=== PATIENT | female | born 1940 | race Caucasian/White ===

== ENCOUNTER 2019-06-14 12:41 | Emergency (ER) | payer OTHER, MEDICARE ==
[~2019-06-14] VITALS: Ht 157.5 cm; Wt 68.0 kg
[~2019-06-14 12:41] MED LIST: CARISOPRODOL 3350 MG PO; CIPRO250 M1 PO; FISH OIL 1,0001 EAC5 PO; FLEXERIL PO; FOSAMAX 70 MG T70 MG PO; GALZIN50 MG PO; HAIR, SKIN & N1 EAC1 PO; LODINE400 MG PO; MAGNESIUM250 M1 PO; NIASPAN ER 101000 M1 PO; OSTEO BI-FLEX1 EAC1 PO; OXYBUTYNIN 5 MG5 M1 PO; OXYCODON-ACETA1 EAC1 PO; OXYCODONE-ACET1 EAC2 PO; PREDNISONE 5 MG5 M1 PO; PRILOSEC 20 MG20 MG PO; VALIUM5 MG PO; VASOTEC20 MG PO; VITAMIN E400 UNIT PO
[2019-06-14 13:21] LABS: HEMATOCRIT 31.4 % (37.0-47.0); HEMOGLOBIN 9.6 gm/dL (12.0-15.0); MCH 22.8 pg (26.0-34.0); MCHC 30.5 g/dL (28.0-37.0); PLATELET COUNT 252 thou/uL (150-400); RBC 4.19 mil/uL (4.20-5.00); RDW 17.8 % (10.5-14.5); WBC 5.1 thou/uL (4.0-11.0)
[2019-06-14 13:29] LABS: ANION GAP 6 mmol/L (7-16); BUN 12 mg/dL (7-18); CALCIUM 8.8 mg/dL (8.5-10.1); CHLORIDE 106 mmol/L (98-107); CO2 29 mmol/L (21-32); CREATININE 0.8 mg/dL (0.6-1.0); GLUCOSE 102 mg/dL (74-106); POTASSIUM 3.9 mmol/L (3.5-5.1); SODIUM 141 mmol/L (136-145)
[2019-06-14 13:39] LABS: ALBUMIN 3.6 g/dL (3.4-5.0); SGOT 23 U/L (15-37); SGPT 24 U/L (30-65); TOTAL BILIRUBIN 0.3 mg/dL (<0.1-1.0); TOTAL PROTEIN 6.9 g/dL (6.4-8.2); TROPONIN-I <0.06 ng/mL (<0.06)
--- NOTE | 2019-06-14 13:45 | EKG ---
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[employer] : 1940 Requested By: Cintia Dash Order Number: [id number] : Oliver Price Measurements Intervals [place] Rate: 91 P: 73 [place]: 141 QRS: -3 QRSD: 84 T: 42 QT: 344 QTc: 424 Interpretive Statements Sinus rhythm Ventricular premature complex Probable left atrial enlargement Abnormal R-wave progression, early transition No previous ECG available for comparison Electronically Signed On 06-14-2019 13:44:14 [employer]IEF by Oliver Price [email or web address] <ELECTRONICALLY SIGNED> By: Oliver Price MD 06/14/19 1344 [id number] 1323 MD ARA Nayak
[2019-06-14 13:46] VITALS: BP 139/50
[2019-06-14 14:02] LABS: ABSOLUTE NEUTROPHILS 4.1 thou/uL (1.4-8.2); ANISOCYTOSIS 1+; HYPOCHROMASIA 2+
[2019-06-14 14:03] LABS: MICROCYTES FEW
[2019-06-14] MEDS ORDERED: TESSALON PERLE100 MG PO (14:18)
[2019-06-14] MEDS ORDERED: MUCINEX600 MG PO (14:18)
[2019-06-14] MEDS ORDERED: IBUPROFEN 600600 M1 PO (14:18)
== END 2019-06-14 15:23 | disposition home or self-care (01) ==
LOC: ER 12:41
PROVIDERS: Nurse Practitioner Family
DX: J11.1 Influenza due to unidentified influenza virus with other respiratory manifestations (principal); R19.7 Diarrhea, unspecified; I10 Essential (primary) hypertension; E78.00 Pure hypercholesterolemia, unspecified; Z90.710 Acquired absence of both cervix and uterus; Z90.49 Acquired absence of other specified parts of digestive tract; Z88.6 Allergy status to analgesic agent

== ENCOUNTER → 2020-02-09 | Outpatient (CLI) | payer OTHER, MEDICARE ==
[~2020-02-09] VITALS: Ht 157.5 cm; Wt 70.3 kg
[~2020-02-09] MED LIST changes: +BIOTIN1000 MCG PO; +CALCIUM500 MG PO; +IBUPROFEN 600600 M1 PO; +LIPITOR40 MG PO; +MUCINEX600 MG PO; +NEURONTIN 300M300 M2 PO; +POTASSIUM99 M1 PO; +PROTONIX40 M4 PO; +TESSALON PERLE100 MG PO; +TRAMADOL 50 MG50 MG PO; +VITAMIN D3-ALO1 EACH PO
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
[2020-02-09 09:47] VITALS: BP 167/77
--- NOTE | 2020-02-09 10:34 | NUR ---
Pain Clinic Assessment: 1. History of Osteoarthritis: FINGERS HANDS SHOULDERS WRISTS History of Rheumatoid Arthritis: Not Applicable 2. Height: 5 ft. 2 in. 157.5 cm. Weight: 155.0 lb. oz. 70.308 kg. Patient's BMI: 28.3 3. Vital Signs: BP: 167/77 Pulse: 74 Resp: 16 Temp: 02 Sat: 99 ECG Mon: 4. Pain Intensity: 8-9 5. Fall Risk: Dizziness: N Needs help standing or walking: N Fallen in the last 3 months: N Fall risk comments: 6. Patient on Blood Thinner: None 7. History of Hypertension: Y 8. Opioid Therapy greater than 6 weeks: Y Opiate Contract Signed: 9. Risk Assessment Tool Provided: low-0 10. Functional Assessment Tool: 53/70 11. Recreational Drug Use: Never Drug Type: Tobacco Use: Former Smoker Tobacco Type: Cigarettes Amount or Packs/day: How Many Years: Alcohol Use: Yes Frequency: Special Occasions Quant: 1
== END ==
LOC: PAIN 01-20 14:03
PROVIDERS: ATTEND Anesthesiology Pain Medicine
DX: G89.29 Other chronic pain (principal); I10 Essential (primary) hypertension; Z87.19 Personal history of other diseases of the digestive system; Z88.8 Allergy status to other drugs, medicaments and biological substances; Z79.899 Other long term (current) drug therapy

== ENCOUNTER → 2020-03-11 | Outpatient (CLI) | payer OTHER, MEDICARE ==
[~2020-03-11] VITALS: Ht 157.5 cm; Wt 71.2 kg
[~2020-03-11] MED LIST changes: +BUTALB-APAP-CA1 EACH PO; +CYMBALTA20 MG PO; +DULOXETINE HCL30 MG PO
[2020-03-11 14:39] VITALS: BP 154/80
== END | disposition home or self-care (01) ==
LOC: PAIN 06:57
PROVIDERS: ATTEND Anesthesiology Pain Medicine
DX: M19.011 Primary osteoarthritis, right shoulder (principal); M19.012 Primary osteoarthritis, left shoulder; I10 Essential (primary) hypertension; M19.90 Unspecified osteoarthritis, unspecified site; Z98.890 Other specified postprocedural states; Z79.899 Other long term (current) drug therapy; Z87.891 Personal history of nicotine dependence; Z88.8 Allergy status to other drugs, medicaments and biological substances

== ENCOUNTER → 2020-06-07 | Outpatient (CLI) | payer OTHER, MEDICARE ==
[~2020-06-07] VITALS: Ht 157.5 cm; Wt 73.2 kg
[~2020-06-07] MED LIST changes: +MELOXICAM7.5 MG PO
[2020-06-07 14:16] VITALS: BP 134/63
--- NOTE | 2020-06-07 14:36 | NUR ---
Pain Clinic Assessment: 1. History of Osteoarthritis: FINGERS HANDS SHOULDERS WRISTS KNEES History of Rheumatoid Arthritis: Not Applicable 2. Height: 5 ft. 2 in. 157.5 cm. Weight: 161.4 lb. oz. 73.211 kg. Patient's BMI: 29.5 3. Vital Signs: BP: 134/63 Pulse: 90 Resp: 16 Temp: 02 Sat: 97 ECG Mon: 4. Pain Intensity: 8 TO 9 5. Fall Risk: Dizziness: N Needs help standing or walking: N Fallen in the last 3 months: Y Fall risk comments: 6. Patient on Blood Thinner: None 7. History of Hypertension: Y 8. Opioid Therapy greater than 6 weeks: N Opiate Contract Signed: 9. Risk Assessment Tool Provided: low-0 10. Functional Assessment Tool: 53/70 11. Recreational Drug Use: Never Drug Type: Tobacco Use: Former Smoker Tobacco Type: Amount or Packs/day: How Many Years: Alcohol Use: Yes Frequency: Special Occasions Quant: 1
== END | disposition home or self-care (01) ==
LOC: PAIN 07:10
PROVIDERS: ATTEND Anesthesiology Pain Medicine
DX: M17.0 Bilateral primary osteoarthritis of knee (principal); M25.561 Pain in right knee; M25.562 Pain in left knee; G89.29 Other chronic pain; M19.011 Primary osteoarthritis, right shoulder; M19.012 Primary osteoarthritis, left shoulder; I10 Essential (primary) hypertension; M19.90 Unspecified osteoarthritis, unspecified site; Z98.890 Other specified postprocedural states; Z79.899 Other long term (current) drug therapy; Z87.891 Personal history of nicotine dependence; Z88.8 Allergy status to other drugs, medicaments and biological substances

== ENCOUNTER → 2020-08-23 | Outpatient (CLI) | payer OTHER, MEDICARE ==
[~2020-08-23] VITALS: Ht 157.5 cm; Wt 71.7 kg
[~2020-08-23] MED LIST changes: +GLUCOSAMINE H1500 MG PO; +LODINE400 M1 PO; +MAGNESIUM PO; +NORVASC5 MG PO; +OXYBUTYNIN 5 MG5 M2 PO; +POTASSIUM PO; +PROTONIX40 M2 PO; +SUPER THERAVIT1 EACH PO; +VITAMIN D325 MC3 PO; +ZINC50 M2 PO
[2020-08-23 15:21] VITALS: BP 119/72
--- NOTE | 2020-08-23 15:39 | NUR ---
Pain Clinic Assessment: 1. History of Osteoarthritis: FINGERS HANDS SHOULDERS WRISTS KNEES History of Rheumatoid Arthritis: Not Applicable 2. Height: 5 ft. 2 in. 157.5 cm. Weight: 158.0 lb. oz. 71.668 kg. Patient's BMI: 28.9 3. Vital Signs: BP: 119/72 Pulse: 92 Resp: 16 Temp: 02 Sat: 96 ECG Mon: 4. Pain Intensity: 10 W/ACTIVITY 5. Fall Risk: Dizziness: N Needs help standing or walking: N Fallen in the last 3 months: N Fall risk comments: 6. Patient on Blood Thinner: None 7. History of Hypertension: Y 8. Opioid Therapy greater than 6 weeks: N Opiate Contract Signed: 9. Risk Assessment Tool Provided: low-0 10. Functional Assessment Tool: 53/70 11. Recreational Drug Use: Never Drug Type: Tobacco Use: Former Smoker Tobacco Type: Amount or Packs/day: How Many Years: Alcohol Use: Yes Frequency: Quant:
== END | disposition home or self-care (01) ==
LOC: PAIN 10:46
PROVIDERS: ATTEND Anesthesiology Pain Medicine
DX: M25.511 Pain in right shoulder (principal); M25.512 Pain in left shoulder; M12.812 Other specific arthropathies, not elsewhere classified, left shoulder; M12.811 Other specific arthropathies, not elsewhere classified, right shoulder; M77.8 Other enthesopathies, not elsewhere classified; M75.52 Bursitis of left shoulder; M75.51 Bursitis of right shoulder; I10 Essential (primary) hypertension; Z98.890 Other specified postprocedural states; Z79.899 Other long term (current) drug therapy; Z87.891 Personal history of nicotine dependence; Z88.8 Allergy status to other drugs, medicaments and biological substances

== ENCOUNTER → 2020-09-16 | Outpatient (CLI) | payer OTHER, MEDICARE ==
[~2020-09-16] VITALS: Ht 157.5 cm; Wt 66.1 kg
[~2020-09-16] MED LIST changes: +METHOCARBAMOL500 M2 PO
[2020-09-16 09:44] VITALS: BP 126/70
--- NOTE | 2020-09-16 09:56 | NUR ---
Pain Clinic Assessment: 1. History of Osteoarthritis: FINGERS HANDS SHOULDERS WRISTS KNEES History of Rheumatoid Arthritis: Not Applicable 2. Height: 5 ft. 2 in. 157.5 cm. Weight: 145.8 lb. oz. 66.134 kg. Patient's BMI: 26.7 3. Vital Signs: BP: 126/70 Pulse: 94 Resp: 18 Temp: 02 Sat: 95 ECG Mon: 4. Pain Intensity: 10 5. Fall Risk: Dizziness: N Needs help standing or walking: N Fallen in the last 3 months: N Fall risk comments: 6. Patient on Blood Thinner: None 7. History of Hypertension: Y 8. Opioid Therapy greater than 6 weeks: N Opiate Contract Signed: 9. Risk Assessment Tool Provided: low-0 10. Functional Assessment Tool: 53/70 11. Recreational Drug Use: Never Drug Type: Tobacco Use: Former Smoker Tobacco Type: Amount or Packs/day: How Many Years: Alcohol Use: Yes Frequency: Special Occasions Quant: 1
== END | disposition home or self-care (01) ==
LOC: PAIN 07:13
PROVIDERS: ATTEND Anesthesiology Pain Medicine
DX: M48.061 Spinal stenosis, lumbar region without neurogenic claudication (principal); M54.16 Radiculopathy, lumbar region; G89.29 Other chronic pain; I10 Essential (primary) hypertension; M19.90 Unspecified osteoarthritis, unspecified site; Z98.890 Other specified postprocedural states; Z79.899 Other long term (current) drug therapy; Z87.891 Personal history of nicotine dependence; Z88.8 Allergy status to other drugs, medicaments and biological substances

== ENCOUNTER → 2020-10-21 | Outpatient (CLI) | payer OTHER, MEDICARE ==
[~2020-10-21] VITALS: Ht 157.5 cm; Wt 71.0 kg
[~2020-10-21] MED LIST changes: +CYMBALTA30 MG PO; +HYDROCODON-ACE1 EAC7 PO
[2020-10-21 12:59] VITALS: BP 129/72
--- NOTE | 2020-10-21 13:10 | NUR ---
Pain Clinic Assessment: 1. History of Osteoarthritis: FINGERS HANDS SHOULDERS WRISTS KNEES History of Rheumatoid Arthritis: Not Applicable 2. Height: 5 ft. 2 in. 157.5 cm. Weight: 156.6 lb. oz. 71.033 kg. Patient's BMI: 28.6 3. Vital Signs: BP: 129/72 Pulse: 87 Resp: 16 Temp: 02 Sat: 97 ECG Mon: 4. Pain Intensity: 4 back 10 shoulder 5. Fall Risk: Dizziness: N Needs help standing or walking: N Fallen in the last 3 months: N Fall risk comments: 6. Patient on Blood Thinner: None 7. History of Hypertension: Y 8. Opioid Therapy greater than 6 weeks: N Opiate Contract Signed: 9. Risk Assessment Tool Provided: low-0 10. Functional Assessment Tool: 53/70 11. Recreational Drug Use: Never Drug Type: Tobacco Use: Former Smoker Tobacco Type: Amount or Packs/day: How Many Years: Alcohol Use: Yes Frequency: Special Occasions Quant: 1-2
== END ==
LOC: PAIN 11:00
PROVIDERS: ATTEND Clinical Nurse Specialist Adult Health
DX: M54.16 Radiculopathy, lumbar region (principal); M48.061 Spinal stenosis, lumbar region without neurogenic claudication; M41.86 Other forms of scoliosis, lumbar region; M19.90 Unspecified osteoarthritis, unspecified site; G89.4 Chronic pain syndrome; I10 Essential (primary) hypertension; Z79.891 Long term (current) use of opiate analgesic; Z79.899 Other long term (current) drug therapy; Z87.891 Personal history of nicotine dependence; Z72.89 Other problems related to lifestyle

== ENCOUNTER → 2020-12-30 | Outpatient (CLI) | payer OTHER, MEDICARE ==
[~2020-12-30] VITALS: Ht 157.5 cm; Wt 72.0 kg
[~2020-12-30] MED LIST changes: +CYMBALTA60 MG PO; +TIZANIDINE HCL 22 M1 PO
[2020-12-30 13:32] VITALS: BP 160/79
--- NOTE | 2020-12-30 13:40 | NUR ---
Pain Clinic Assessment: 1. History of Osteoarthritis: FINGERS HANDS SHOULDERS WRISTS KNEES History of Rheumatoid Arthritis: Not Applicable 2. Height: 5 ft. 2 in. 157.5 cm. Weight: 158.8 lb. oz. 72.031 kg. Patient's BMI: 29.0 3. Vital Signs: BP: 160/79 Pulse: 80 Resp: 16 Temp: 02 Sat: 98 ECG Mon: 4. Pain Intensity: 7 5. Fall Risk: Dizziness: N Needs help standing or walking: N Fallen in the last 3 months: N Fall risk comments: 6. Patient on Blood Thinner: None 7. History of Hypertension: Y 8. Opioid Therapy greater than 6 weeks: N Opiate Contract Signed: 9. Risk Assessment Tool Provided: low-0 10. Functional Assessment Tool: 53/70 11. Recreational Drug Use: Never Drug Type: Tobacco Use: Former Smoker Tobacco Type: Amount or Packs/day: How Many Years: Alcohol Use: Yes Frequency: Quant:
== END ==
LOC: PAIN 12:05
PROVIDERS: ATTEND Clinical Nurse Specialist Adult Health
DX: M41.86 Other forms of scoliosis, lumbar region (principal); M54.16 Radiculopathy, lumbar region; M48.061 Spinal stenosis, lumbar region without neurogenic claudication; M19.011 Primary osteoarthritis, right shoulder; M19.012 Primary osteoarthritis, left shoulder; M19.92 Post-traumatic osteoarthritis, unspecified site; G89.29 Other chronic pain

== ENCOUNTER → 2021-02-07 | Outpatient (CLI) | payer OTHER, MEDICARE ==
[~2021-02-07] VITALS: Ht 157.5 cm; Wt 71.8 kg
[2021-02-07 10:44] VITALS: BP 156/78
--- NOTE | 2021-02-07 10:59 | NUR ---
Pain Clinic Assessment: 1. History of Osteoarthritis: FINGERS HANDS SHOULDERS WRISTS KNEES History of Rheumatoid Arthritis: Not Applicable 2. Height: 5 ft. 2 in. 157.5 cm. Weight: 158.2 lb. oz. 71.759 kg. Patient's BMI: 28.9 3. Vital Signs: BP: 156/78 Pulse: 83 Resp: 16 Temp: 02 Sat: 97 ECG Mon: 4. Pain Intensity: 8 5. Fall Risk: Dizziness: N Needs help standing or walking: Y Fallen in the last 3 months: N Fall risk comments: 6. Patient on Blood Thinner: None 7. History of Hypertension: Y 8. Opioid Therapy greater than 6 weeks: N Opiate Contract Signed: 9. Risk Assessment Tool Provided: low-0 10. Functional Assessment Tool: 53/70 11. Recreational Drug Use: Never Drug Type: Tobacco Use: Former Smoker Tobacco Type: Amount or Packs/day: How Many Years: Alcohol Use: Yes Frequency: Quant:
== END | disposition home or self-care (01) ==
LOC: PAIN 07:00
PROVIDERS: ATTEND Anesthesiology Pain Medicine
DX: M17.0 Bilateral primary osteoarthritis of knee (principal); M19.011 Primary osteoarthritis, right shoulder; M19.012 Primary osteoarthritis, left shoulder; I10 Essential (primary) hypertension; M19.90 Unspecified osteoarthritis, unspecified site; Z98.890 Other specified postprocedural states; Z79.899 Other long term (current) drug therapy; Z88.8 Allergy status to other drugs, medicaments and biological substances; Z87.891 Personal history of nicotine dependence

== ENCOUNTER → 2021-05-26 | Outpatient (CLI) | payer OTHER, MEDICARE ==
[~2021-05-26] VITALS: Ht 157.5 cm; Wt 70.3 kg
[~2021-05-26] MED LIST changes: +VOLTAREN ARTHRI20 GM
[2021-05-26 14:39] VITALS: BP 122/69
--- NOTE | 2021-05-26 14:53 | NUR ---
Pain Clinic Assessment: 1. History of Osteoarthritis: FINGERS HANDS SHOULDERS WRISTS KNEES History of Rheumatoid Arthritis: Not Applicable 2. Height: 5 ft. 2 in. 157.5 cm. Weight: 155.0 lb. oz. 70.308 kg. Patient's BMI: 28.3 3. Vital Signs: BP: 122/69 Pulse: 89 Resp: 16 Temp: 02 Sat: 97 ECG Mon: 4. Pain Intensity: 8 5. Fall Risk: Dizziness: N Needs help standing or walking: Y Fallen in the last 3 months: N Fall risk comments: 6. Patient on Blood Thinner: None 7. History of Hypertension: Y 8. Opioid Therapy greater than 6 weeks: N Opiate Contract Signed: 9. Risk Assessment Tool Provided: low-0 10. Functional Assessment Tool: 11. Recreational Drug Use: Never Drug Type: Tobacco Use: Former Smoker Tobacco Type: Amount or Packs/day: How Many Years: Alcohol Use: No Frequency: Quant:
== END | disposition home or self-care (01) ==
LOC: PAIN 09:33
PROVIDERS: ATTEND Anesthesiology Pain Medicine
DX: M25.561 Pain in right knee (principal); M25.562 Pain in left knee; M17.0 Bilateral primary osteoarthritis of knee; M54.16 Radiculopathy, lumbar region; G89.29 Other chronic pain; I10 Essential (primary) hypertension; M19.90 Unspecified osteoarthritis, unspecified site; Z98.890 Other specified postprocedural states; Z79.899 Other long term (current) drug therapy; Z87.891 Personal history of nicotine dependence; Z88.8 Allergy status to other drugs, medicaments and biological substances